=== PATIENT | male | born 1955 | race Caucasian/White ===

== ENCOUNTER 2021-05-31 08:11 | Outpatient (CLI) | payer MEDICARE, BC, SELFPAY ==
--- NOTE | 2021-05-31 08:20 | ADUL_ITS ---
Reason For Study: Atherosclerosis Right Velocities Ext. Iliac Artery, dist = 148 cm./sec. Common Femoral Artery, dist = 159 cm./sec. Supf Femoral Artery, prox = 49 cm./sec. Supf Femoral Artery, mid = 70 cm./sec. Supf Femoral Artery, dist. = 56 cm./sec. Profunda Femoral Artery = 115 cm./sec. Popliteal Artery, mid = 40 cm./sec. Post. Tibial Artery, prox = 95 cm./sec. Post. Tibial Artery, mid = 39 cm./sec. Post. Tibial Artery, dist = 37 cm./sec. Peroneal Artery, prox = 37 cm./sec. Peroneal Artery, mid = 33 cm./sec. Peroneal Artery,dist = 24 cm./sec. Ant. Tibial Artery, prox = 32 cm./sec. Ant. Tibial Artery, mid = 27 cm./sec. Ant. Tibial Artery, dist = 25 cm./sec. /US Art Duplex Unilat Lower Ext Interpretation Summary Right lower extremity with no significant stenosis noted throughout. Appears to be triphasic flow through the tibials. Ordering Physician: Edson Maldonado Performed By: Breana Rocha, JONNATHAN, RVT
--- NOTE | 2021-05-31 08:21 | ART_ITS ---
Reason For Study: Atherosclerosis Procedure A bilateral lower extremity continuous wave Doppler with analog waveform analysis and ankle brachial indexes. Left Segmental Pressures Left brachial= 124mmHg. Left posterior tibial artery = 94mmHg. Left dorsalis pedis artery = 92mmHg. Left digit = 49 mmHg. Right Segmental Pressures Right brachial= 128mmHg. Right posterior tibial artery = 116mmHg. Right dorsalis pedis artery = 119mmHg. Indices The right ankle brachial index by the posterior tibial artery is 0.91. The right ankle brachial index by the dorsalis pedis is 0.93. The left ankle brachial index by the posterior tibial artery is 0.73. The left ankle brachial index by the dorsalis pedis is 0.72. The left digital-brachial index is 0.38. VL/Ankle Brachial Index Interpretation Summary Right lower extremity with no evidence of significant occlusive disease at rest with triphasic flow and an CARMINE 0.93. Left lower extremity with mild occlusive disease with biphasic flow and an CARMINE 0.73. Ordering Physician: Edson Maldonado Performed By: Breana Rocha RDCS/RVT
--- NOTE | 2021-05-31 08:21 | AAVD_ITS ---
Reason For Study: Atherosclerosis Aorta Measurements Aorta Doppler Measurements Proximal aorta measures2.49cm x 2.53cm. in cross- Peak systolic flow velocities within the proximal sectional axis. aorta measure 71 cm/sec. Proximal aorta measures2.42cm. in longitudinal Peak systolic flow velocities within the mid aorta axis. measure 73 cm/sec. Mid aorta measures1.86cm x 2.13cm. in cross- Peak systolic flow velocities within the distal sectional axis. aorta measure 56 cm/sec. Mid aorta measures2.09cm. in longitudinal axis. Distal aorta measures1.63cm x 1.54cm. in cross- sectional axis. Distal aorta measures1.73cm. in longitudinal axis. Left Iliac Artery Left iliac artery measures 1.07cm x 1.08 cm. in the cross-sectional axis. Left iliac artery measures 1.06 cm. in the longitudinal axis. Peak systolic velocity in the left iliac artery measures 67 cm/sec. Right Iliac Artery Right iliac artery measures 1.22cm x 1.24 cm. in the cross-sectional axis. Right iliac artery measures 1.23 cm. in the longitudinal axis. Peak systolic velocity in the right iliac artery measures 92 cm/sec. Procedure Aorta IVC Iliac vasculature or bypass grafts [id number]. Exam performed in department. VL/Abd Aortic/IVC Duplex scan Interpretation Summary No evidence of aortic iliac stenosis or aneurysm noted. Ordering Physician: Edson Maldonado Performed By: Breana Rocha, JONNATHAN, RVT
--- NOTE | 2021-05-31 08:21 | CDU_ITS ---
Reason For Study: Stenosis Rt. Velocities/BP Lt. Velocities/BP Prox CCA 90/18 cm/sec. Prox CCA 89/18 cm/sec. Mid CCA 69/16 cm/sec. Mid CCA 87/23 cm/sec. Dist CCA 61/16 cm/sec. Dist CCA 68/19 cm/sec. Prox ICA 77/16 cm/sec. Prox ICA 72/18 cm/sec. Mid ICA 106/30 cm/sec. Mid ICA 84/25 cm/sec. Dist ICA 113/33 cm/sec. Dist ICA 85/25 cm/sec. Rt. ICA/CCA = 1.6. Lt. ICA/CCA = 1.0. Prox ECA 152/21 cm/sec. Prox ECA 344/38 cm/sec. Rt. Vert. 62/15 cm/sec. Lt. Vert. 71/18 cm/sec. Right Extracranial There is heterogeneous, irregular atherosclerotic plaque noted in the right common carotid artery. There is heterogeneous, irregular atherosclerotic plaque noted in the right internal carotid artery. There is heterogeneous, irregular atherosclerotic plaque noted in the right external carotid artery. Antegrade flow is noted in the right vertebral artery. Left Extracranial There is intimal thickening but no significant atherosclerotic plaque noted in the left common carotid artery. There is heterogeneous, irregular atherosclerotic plaque noted in the left internal carotid artery. There is heterogeneous, irregular atherosclerotic plaque noted in the left external carotid artery. Antegrade flow is noted in the left vertebral artery. Procedure Carotid Duplex 99164. This is a Carotid Duplex examination using B-mode, color flow and specral Doppler. Exam performed in department. VL/Carotid Duplex Ultrasound Interpretation Summary Mild (<50%) stenosis right extracranial internal carotid. Mild (<50%) stenosis left extracranial internal carotid. Flow within the vertebral arteries is antegrade bilaterally. Ordering Physician: Edsno Maldonado Performed By: Breana Rocha, RDCS, RVT
== END 2021-05-31 23:59 | disposition home or self-care (01) ==
LOC: CVS 08:17
PROVIDERS: Visit Provider Surgery Vascular Surgery
DX: I65.23 Occlusion and stenosis of bilateral carotid arteries (principal); I70.213 Atherosclerosis of native arteries of extremities with intermittent claudication, bilateral legs; I77.1 Stricture of artery; F17.200 Nicotine dependence, unspecified, uncomplicated
CPT/HCPCS: 93880; 93922; 93926; 93978

== ENCOUNTER → 2022-06-22 | Outpatient (CLI) | payer MEDICARE, SELFPAY ==
--- NOTE | 2022-06-22 07:56 | ART_ITS ---
Reason For Study: Atherosclerosis Procedure A bilateral lower extremity continuous wave Doppler with analog waveform analysis and ankle brachial indexes. Left Segmental Pressures Left brachial= 138mmHg. Left posterior tibial artery = 96mmHg. Left dorsalis pedis artery = 100mmHg. Left digit = 63 mmHg. The left dorsalis pedis waveforms are monophasic. The left posterior tibial artery waveforms are monophasic. Right Segmental Pressures Right brachial= 152mmHg. Right posterior tibial artery = 113mmHg. Right dorsalis pedis artery = 111mmHg. Right digit = 57 mmHg. The right dorsalis pedis waveforms are monophasic. The right posterior tibial artery waveforms are biphasic. Indices The right ankle brachial index by the dorsalis pedis is 0.73. The right ankle brachial index by the posterior tibial artery is 0.74. The right digital-brachial index is 0.38. The left ankle brachial index by the dorsalis pedis is 0.66. The left ankle brachial index by the posterior tibial artery is 0.63. The left digital-brachial index is 0.41. VL/Ankle Brachial Index Interpretation Summary Right mild disease with CARMINE 0.73 with biphasic flow and left moderate with CARMINE 0.66 with monophasic flow. DBI 0.38 and 0.41. Ordering Physician: Edson Maldonado Referring Physician: Stacey Vieira Performed By: Sri Cuellar RVT
== END | disposition home or self-care (01) ==
PROVIDERS: PCP Student in an Organized Health Care Education/Training Program; Referring Provider Family Medicine; Visit Provider Surgery Vascular Surgery
DX: I70.213 Atherosclerosis of native arteries of extremities with intermittent claudication, bilateral legs (principal); I77.1 Stricture of artery; F17.200 Nicotine dependence, unspecified, uncomplicated
CPT/HCPCS: 93922

== ENCOUNTER → 2023-10-29 | Outpatient (CLI) | payer MEDICARE, SELFPAY ==
--- NOTE | 2023-10-29 08:00 | ART_ITS ---
Reason For Study: Atherosclerosis Procedure A bilateral lower extremity continuous wave Doppler with analog waveform analysis and ankle brachial indexes. Left Segmental Pressures Left brachial= 134mmHg. Left posterior tibial artery = 112mmHg. Left dorsalis pedis artery = 91mmHg. Left digit = 74 mmHg. The left dorsalis pedis waveforms are monophasic. The left posterior tibial artery waveforms are biphasic. Right Segmental Pressures Right brachial= 139mmHg. Right posterior tibial artery = 98mmHg. Right dorsalis pedis artery = 92mmHg. Right digit = 55 mmHg. The right dorsalis pedis waveforms are monophasic. The right posterior tibial artery waveforms are biphasic. Indices The right ankle brachial index by the dorsalis pedis is 0.66. The right ankle brachial index by the posterior tibial artery is 0.71. The right digital-brachial index is 0.40. The left ankle brachial index by the dorsalis pedis is 0.65. The left ankle brachial index by the posterior tibial artery is 0.81. The left digital-brachial index is 0.53. VL/Ankle Brachial Index Interpretation Summary Resting ankle-brachial indices appear mildly abnormal bilaterally. Ordering Physician: Edson Maldonado Referring Physician: Stacey Vieira Performed By: Sri Cuellar RVT
== END | disposition home or self-care (01) ==
LOC: CVS 07:59
PROVIDERS: PCP Student in an Organized Health Care Education/Training Program; Referring Provider Surgery Vascular Surgery; Visit Provider Surgery Vascular Surgery
DX: I70.213 Atherosclerosis of native arteries of extremities with intermittent claudication, bilateral legs (principal); I77.1 Stricture of artery; F17.200 Nicotine dependence, unspecified, uncomplicated
CPT/HCPCS: 93922